=== PATIENT | female | born 1985 ===

== ENCOUNTER 2016-06-12 00:46 | Emergency (ER) | payer MEDICAID, OTHER ==
[~2016-06-12] VITALS: Ht 167.6 cm; Wt 132.7 kg
[2016-06-12] VITALS (8 sets, daily range): BP systolic 113–136; BP diastolic 63–92; PULSE 86–112; RESP 20–34; O2SAT 94–98
[~2016-06-12 00:46] MED LIST: ALBU8.5H2 INHALATION; AMOX500T2 PO; AZIT250T4 PO; HYDR-4003 PO
[2016-06-12] MEDS ORDERED: Albuterol-Ipratropium 3 mL Inhalation Solution NEB ONE (01:00)
[2016-06-12] MEDS ORDERED: Albuterol 2.5 mg/3 mL Inhalation Solution NEB ONE ×3 (01:00→02:50)
--- NOTE | 2016-06-12 01:13 | ED.REPORT ---
HPI-Dyspnea / Wheezing Date of Service Jun 12, 2016 ED Provider: Mitchell Dupree MD Pt is a 30 y.o. female with a hx of asthma who presents to the ED c/o SOB onset today. Pt also states that she is having heavy vaginal bleeding onset yesterday in association with her menses, she reports going through "more pads than normal ". She denies fever, vomiting, diarrhea, and cough. Nursing Notes Stated Complaint: TROUBLE BREATHING Chief Complaint: General Complaint Nursing Notes Reviewed: Yes Allergies: Coded Allergies: cyclobenzaprine (Verified Allergy, Mild, 06/12/16) methocarbamol (Verified Allergy, Mild, 06/12/16) hydromorphone HCl (Verified Allergy, Unknown, 06/12/16) ibuprofen (Verified Allergy, Unknown, 06/12/16) naproxen (Verified Allergy, Unknown, 03/13/16) tramadol (Verified Allergy, Unknown, 03/13/16) Scheduled Albuterol HFA (Proair HFA) 8.5 Gm Hfa.aer.ad 2 PUFFS INHALATION Q4H Amoxicillin (Amoxicillin) 500 Mg Tablet 500 MG PO TID Azithromycin (Zithromax (Z-Tom)) 250 Mg Tablet 250 MG PO DIRECTED Take two tablets by mouth on day 1, then take one tablet daily on days 2 through 5. Scheduled PRN Hydrocodone-Acetaminophen 5-325 mg (Hydrocodone-Acetaminophen 5-325 mg) 1 Each Tablet 1 TABLET PO Q4H PRN PRN For Pain General Time Seen by MD: 01:12 Chief Complaint Shortness of breath Hx Obtained From: Patient Arrived By: Walk-in Sudden in Onset?: Yes Onset Occurred: Just prior to arrival Symptom Duration: Since onset Severity: Current: No pain currently Recent Healthcare: No recent doctor visit, No recent hospitalization Past Medical History Past Medical History morbid obesity, chronic back pain Reports: Asthma Past Surgical History Reports: Cholecystectomy, Tonsillectomy Family History Reviewed, not relevant Smoking History Current Some Day Smoker Social History Alcohol Use: Denies alcohol use Drug Use: Denies drug use Occupation [employer] Ambulatory Status Independent Review of Systems Constitutional: Denies: Fever Respiratory: Reports: Shortness of breath, Denies: Non-productive cough Complete sys rev & neg: except as marked. GI: Denies: Diarrhea, Nausea, Vomiting Female: Reports: Vaginal bleeding - abnl Physical Exam Initial Vital Signs Vital Signs (First) Date Time Temp Pulse Resp B/P Pulse Ox O2 Delivery O2 Flow Rate FiO2 06/12/16 00:50 36.0 86 24 136/92 98 Room Air Initial VS: Reviewed Head / Eyes: Atraumatic, Normocephalic Extremities: Vascular intact, Neuro intact Skin: Warm, Dry, No cyanosis Neurologic: Alert, Oriented, Nonfocal Psychiatric: Mood/affect normal, Behavior normal, Normal thought content General/Constitutional: Awake, Alert, Well appearing, Well developed, Well hydrated, Well nourished, Not toxic appearing Appearance / Presentation: Positive: Obese, morbidly Neck: Atraumatic Respiratory / Chest: Atraumatic, No respiratory distress Wheezing / Retractions: Positive: Wheezing expiratory (High pitched, throughout all galvez) Cardiovascular: Heart rate NL, Regular rhythm, Heart sounds NL, Cap refill not delayed, Peripheral circulation NL No lower extremity edema Abdomen: Atraumatic, Soft, Non-tender, No guarding, No rebound, No distention Interpretation & Diagnostics Lab Results Interpretation Result Diagram: 06/12/16 0140 06/12/16 0140 Test 06/12/16 01:40 White Blood Count 13.1th/mm3 (3.8-10.1) Red Blood Count 5.22mil/mm3 (3.90-5.20) Hemoglobin 15.5g/dL (12.0-15.6) Hematocrit 45.4% (35.0-46.0) Mean Corpuscular Volume 87.0fL (81-100) Mean Corpuscular Hemoglobin 29.7pg (27.0-35.0) Mean Corpuscular Hemoglobin Concent 34.1% (32.0-37.0) Red Cell Distribution Width 13.2% (12.3-15.4) Platelet Count 322bil/L (150-400) Neutrophils (%) (Auto) 39.0% (40-74) Lymphocytes (%) (Auto) 49.2% (14-46) Monocytes (%) (Auto) 6.5% (4-12) Eosinophils (%) (Auto) 4.8% (0-5) Basophils (%) (Auto) 0.3% (0-3) D-Dimer 0.6mg/L (<0.50) Urine Color Yellow (YELLOW) Urine Appearance Clear (CLEAR,HAZY) Urine pH 6.0 (5.0-8.0) Urine Specific [place] 1.010 (1.003-1.035) Urine Protein Negativemg/dL (NEG,TRACE) Urine Glucose (UA) Negativemg/dL (NEGATIVE) Urine Ketones Negativemg/dL (NEGATIVE) Urine Occult Blood Large (NEGATIVE) Urine Nitrite Negative (NEGATIVE) Urine Bilirubin Negative (NEGATIVE) Urine Urobilinogen Normalmg/dL (NORMAL) Urine Leukocyte Esterase Small (NEGATIVE) Urine RBC 3-10/hpf (0-2) Urine WBC >50/hpf (0-5) Urine Epithelial Cells Many/hpf (NONE-MOD) Urine Crystals None seen (NONE SEEN) Urine Bacteria None/hpf (NONE-FEW) Urine Hyaline Casts None/lpf (NONE) Urine Granular Casts None seen (NONE SEEN) Urine Waxy Casts None seen (NONE SEEN) Urine Red Blood Cell Casts None seen (NONE SEEN) Urine White Blood Cell Casts None seen (NONE SEEN) Urine Mucus None seen (None Seen) Urine Trichomonas None seen (NONE SEEN) Urine Yeast None (NONE SEEN) Urine Culture Reflexed Indicated Sodium Level 138mEq/L (134-144) Potassium Level 3.6mEq/L (3.5-5.2) Chloride Level 101mEq/L (97-108) Carbon Dioxide Level 24mmol/L (18-29) Blood Urea Nitrogen 8mg/dL (6-20) Creatinine 0.47mg/dL (0.57-1.00) Estimat Glomerular Filtration Rate 226mL/min (>59) Glucose Level 107mg/dL (60-99) Calcium Level 9.0mg/dL (8.5-10.1) Total Bilirubin 0.7mg/dL (0.0-1.2) Aspartate Amino Transf (AST/SGOT) 20U/L (0-50) Alanine Aminotransferase (ALT/SGPT) 17U/L (0-32) Alkaline Phosphatase 106U/L (25-150) Troponin T 0.010ug/L (0.0-0.011) Pro-B-Type Natriuretic Peptide 17pg/mL (0-130) Total Protein 7.4g/dL (6.4-8.4) Albumin 4.2g/dL (3.4-5.0) Point of Care Testing: Preg test neg - urine Cardiac / Vascular Interp D-Dimer elevated Urinalysis Interpretation Positive RBC's, Positive WBC's X-Ray Chest Interpretation Chest Xray Interpretation: IMPRESSION: No acute cardiopulmonary disease. Interpretation / Wet Read by: Wet read ED physician Re-Eval/Medical Decision Med Decision/Clinical Course 22-year-old female presents with rather severe bronchospasm. She is a known asthmatic and she has been short of breath 4 days. She is found be tachypneic and have diffuse expiratory wheeze. At times her sat was 90%. She is treated with continuous treatment and a DuoNeb and steroids. She sounded better for about 20 minutes after which she started to have diffuse wheeze again. She was now complaining of pleuritic upper chest pain. D-dimer is elevated. Chest x- ray is normal. She does have a leukocytosis. CT angiogram will be pending. We will start her back on a continuous treatment. I will administer IV magnesium. Care endorsed to Dr. Genao Source of Hx: Old records Re-Evaluation/Progress #1: Time of Eval: 02:07 Re-Evaluation/Progress Note: Pt rechecked. Pt states SOB has improved. Re-Evaluation/Progress #2: Time of Eval: 02:44 Re-Evaluation/Progress Note: Discussed plan for CT due to elevated d-dimer. Will administer IV magnesium. Coarse wheezing, painful cough, hypoxic. Counseled Regarding: Diagnosis, Lab results, Need for follow-up, When/why to return to ED Discharge & Departure Shift Change Sign-Out Patient Care Transferred: Yes (Dr. Genao) Discussed Complaint(s): Yes Laboratory Evaluation: Lab evaluation discussed Imaging Studies: Ordered, not yet done Impression: Primary Impression: Status asthmaticus Asthma severity: severe persistent Qualified Code: J45.52 - Severe persistent asthma with status asthmaticus Additional Impression: Pleuritic chest pain Discharge Condition All VS Reviewed: Yes Condition: Stable Referrals: Kapil Phillips MD (PCP) Care Transferred to: Dr. Genao Care Transferred at: 03:00 Theo Attestation Portions of this note were transcribed by Panda Child. I, Dr. Dupree personally performed the history, physical exam and medical decision-making; I reviewed and confirmed the accuracy of the information in the transcribed note. Signed by : Theo Devries, 06/12/16 and 0259. copies to: Kapil Phillips MD, Todd P DO Jun 12, 2016 01:13 PANDA CHILD Jun 12, 2016 01:18
[2016-06-12] MEDS ORDERED: MethylprednisoLONE Sodium Succinate 62.5 mg/mL 2 mL Inj IVPUSH ONE (01:15)
[2016-06-12] MEDS ORDERED: Albuterol 0.5% (5mg/mL) 20 mL Inhalation Solution ONE (01:16)
[2016-06-12 01:51] LABS: BASOPHILS % (AUTO) 0.3 % (0-3); EOSINOPHILS % (AUTO) 4.8 % (0-5); MONOCYTES % (AUTO) 6.5 % (4-12); Mean Corpuscular Hemoglobin 29.7 pg (27.0-35.0); Platelet Count 322 bil/L (150-400)
[2016-06-12 02:05] LABS: APPEARANCE,URINE CLEAR (CLEAR,HAZY); COLOR,URINE YELLOW (YELLOW); OCCULT BLOOD,URINE LARGE (NEGATIVE); UROBILINOGEN,URINE NORMAL (NORMAL)
[2016-06-12 02:30] LABS: TROPONIN T 0.01 ug/L (0.0-0.011)
[2016-06-12] MEDS ORDERED: Magnesium Sulf 2 Gm/50mL Water 2 GM in IV Premix 1 EACH IV ONE (02:50)
[2016-06-12] MEDS ORDERED: cefTRIAXone Inj 2 GM in IV Premix 1 EACH IV ONE (03:20)
[2016-06-12] MEDS ORDERED: cefTRIAXone Inj 2,000 MG in IV Premix 1 EACH IV ONE (03:21)
[2016-06-12] MEDS ORDERED: PRE20 PO (06:40)
--- NOTE | 2016-06-12 08:50 | DRSVH ---
PROCEDURE: CT ANGIO CHEST PULMONARY EMBOLISM ([id number]) INDICATIONS: hypoxia, pleuritic upper chest pain, elevated d-dimer. TECHNIQUE: After the administration of intravenous contrast, 2 mm thick sections acquired from the pulmonary api muna to the posterior costophrenic angles. 3-dimensional maximum intensity projection (MIP) coronal a nd sagittal reformats were then acquired through the thorax. For radiation dose reduction, the follo wing was used: automated exposure control, adjustment of mA and/or kV according to patient size. COMPARISON: [facility], CT, CT ANGIO CHEST PE, 04/22/2016, 6:23. FINDINGS: Image quality: Excellent. Pulmonary arteries: Pulmonary arteries are normal in size, and demonstrate no intraluminal filling d efects to suggest central pulmonary embolism. Lungs and pleura: Lungs are clear. No pleural effusions or pneumothorax. Central and peripheral ai rways are patent. Mediastinum: Heart size is normal, without pericardial effusion. No mediastinal or hilar adenopathy . Thoracic aorta is normal in caliber and enhancement. Esophagus is normal in caliber, without hiat al hernia. Bones and chest wall: No suspicious bony lesions. Ribs and thoracic spine appear intact throughout. Thyroid gland is normal. No axillary or supraclavicular adenopathy. Abdomen: Visualized upper abdominal solid organs appear normal in the early arterial phase of enhanc ement. There is diffuse hepatic fatty infiltration. Gallbladder is surgically absent. IMPRESSION: 1. No evidence for acute central pulmonary embolism. 2. Hepatic steatosis. No significant discrepancy with the cage shift manager radiology preliminary report. Dictated by: Franco Galloway M.D. on 06/12/2016 at 8:45 Approved by: Franco Galloway M.D. on 06/12/2016 at 8:48
--- NOTE | 2016-06-12 09:19 | DRSVH ---
PROCEDURE: X-RAY CHEST ONE VIEW, PORTABLE ([id number]) INDICATIONS: dyspnea TECHNIQUE: One view of the chest was acquired. COMPARISON: [facility], CR, CHEST 1VW (PORTABLE), 09/06/2008, 0:14. FINDINGS: Surgical changes and devices: None. Lungs and pleura: No pleural effusions or pneumothorax. Lungs are clear. Mediastinum: Mediastinal contours appear normal. Heart size is normal. Bones and chest wall: No suspicious bony lesions. Overlying soft tissues appear unremarkable. IMPRESSION: No acute cardiopulmonary disease. Dictated by: Marcus GUSTAFSON Interpreted: Samantha Monk MD on 06/12/2016 at 9:18 Transcribed by: KARINA on 06/12/2016 at 9:19 Approved by: Samantha Monk MD, PhD on 06/12/2016 at 16:44
== END 2016-06-12 06:49 | disposition home or self-care (01) ==
LOC: SED 00:46
DX: J45.52 Severe persistent asthma with status asthmaticus (principal); R07.81 Pleurodynia; N93.9 Abnormal uterine and vaginal bleeding, unspecified; F17.200 Nicotine dependence, unspecified, uncomplicated; Z88.5 Allergy status to narcotic agent; Z88.8 Allergy status to other drugs, medicaments and biological substances
CPT/HCPCS: 36415; 71010; 71275; 80053; 81000; 81025; 83880; 84484; 85025; 85379; 87086; 87804; 94640; 94664; 96365; 96375; 99285; J0696; J2930; J7613; J7620; Q9967

== ENCOUNTER 2016-07-06 20:38 | Emergency (ER) | payer MEDICAID, OTHER ==
[~2016-07-06] VITALS: Ht 167.6 cm; Wt 132.0 kg
[~2016-07-06 20:38] MED LIST changes: +PRE20 PO
[2016-07-06 20:55] VITALS: BP 117/77; PULSE 86; RESP 22; O2SAT 99
--- NOTE | 2016-07-06 22:49 | ED.REPORT ---
HPI-Back Pain Under 40 Date of Service Jul 06, 2016 ED Provider: Rommel Jimenez MD Pt is a 31 y/o female w/ a hx of nephrolithiasis, chronic back pain presenting to the ED c/o left-sided lumbar back pain onset 3 days ago. Pt c/o associated dysuria, urinary frequency, nausea, subjective fever. Pt denies vomiting. She has a history of kidney stones and chronic back pain and believes her pain today is similar to episodes of kidney stones. She also notes some mild SOB and is requesting a nebulizer. Nursing Notes Stated Complaint: BACK PAIN Chief Complaint: Back Pain or Injury Nursing Notes Reviewed: Yes Allergies: Coded Allergies: cyclobenzaprine (Verified Allergy, Mild, 06/12/16) methocarbamol (Verified Allergy, Mild, 06/12/16) hydromorphone HCl (Verified Allergy, Unknown, 06/12/16) ibuprofen (Verified Allergy, Unknown, 06/12/16) naproxen (Verified Allergy, Unknown, 03/13/16) tramadol (Verified Allergy, Unknown, 03/13/16) Scheduled Albuterol HFA (Proair HFA) 8.5 Gm Hfa.aer.ad 2 PUFFS INHALATION Q4H Amoxicillin (Amoxicillin) 500 Mg Tablet 500 MG PO TID Azithromycin (Zithromax (Z-Tom)) 250 Mg Tablet 250 MG PO DIRECTED Take two tablets by mouth on day 1, then take one tablet daily on days 2 through 5. Ciprofloxacin (Ciprofloxacin) 500 Mg Tablet 500 MG PO BID Prednisone (PredniSONE) 20 Mg Tablet 20 MG PO TID Scheduled PRN Hydrocodone-Acetaminophen 5-325 mg (Hydrocodone-Acetaminophen 5-325 mg) 1 Each Tablet 1 TABLET PO Q4H PRN PRN For Pain General Time Seen by MD: 22:12 Chief Complaint Lumbar pain Hx Obtained From: Patient Arrived By: Walk-in Sudden in Onset?: No Onset Occurred: 3 days ago Symptom Duration: Since onset Location: : Perispinal lumbar Quality: Painful Severity: Current: Moderate Severity: Maximum: Moderate Recent Healthcare: Previous diagnosis Similar Sx Previous: Yes Past Medical History Past Medical History morbid obesity, chronic back pain Asthma Hx kidney stones Past Surgical History Reports: Cholecystectomy, Tonsillectomy Family History Reviewed, not relevant Smoking History Current Some Day Smoker Social History Alcohol Use: Denies alcohol use Drug Use: Denies drug use Occupation [employer] Ambulatory Status Independent Review of Systems Constitutional: Reports: Fever Respiratory: Reports: Shortness of breath GI: Reports: Nausea, Denies: Vomiting Female: Reports: Dysuria, Flank pain, Urinary frequency Musculoskeletal: Reports: Back pain Neurologic: Denies: Bladder dysfunction, Bowel dysfunction Complete sys rev & neg: except as marked. Physical Exam Initial Vital Signs Vital Signs (First) Date Time Temp Pulse Resp B/P Pulse Ox O2 Delivery O2 Flow Rate FiO2 07/06/16 20:55 36.1 86 22 117/77 99 Room Air Initial VS: Reviewed, Vital signs normal Head / Eyes: Atraumatic, Normocephalic, PERRL ENT: Mucous membranes moist, Conjunctiva normal, No scleral icterus Neck: Supple, Full range of motion Cardiovascular: Regular rate & rhythm, Heart sounds normal, Intact distal pulses Extremities: Vascular intact, Neuro intact, No swelling, No tenderness Skin: Warm, Dry, No cyanosis Psychiatric: Mood/affect normal, Behavior normal, Normal thought content General/Constitutional: Awake, Alert, No acute distress, Cooperative, Not toxic appearing Back: Full range of motion, Painless range of motion, No CVA tenderness Neurologic: Oriented X3, Speech NL, No motor deficits, No sensory deficits Respiratory / Chest: Atraumatic, No respiratory distress, No stridor, No chest tenderness, No chest wall deformity, No crepitus Few scattered wheezes Abdomen: Atraumatic, Soft, No guarding, No rebound, No distention, No palpable mass Tenderness/Guarding/Rebound: Positive: Tender diffuse (mild) Interpretation & Diagnostics Interpretation & Diagnostics: CT KUB: Conclusion: Suspected 2.7 cm cyst in the right ovary. Trnsmitted to the ED by Martell Morrissey MD at 0050 Lab Results Interpretation Result Diagram: 07/06/16 2311 07/06/16 2311 Test 07/06/16 23:01 07/06/16 23:11 Urine Color Yellow (YELLOW) Urine Appearance Hazy (CLEAR,HAZY) Urine pH 6.0 (5.0-8.0) Urine Specific [place] 1.025 (1.003-1.035) Urine Protein Negativemg/dL (NEG,TRACE) Urine Glucose (UA) Negativemg/dL (NEGATIVE) Urine Ketones Negativemg/dL (NEGATIVE) Urine Occult Blood Negative (NEGATIVE) Urine Nitrite Negative (NEGATIVE) Urine Bilirubin Negative (NEGATIVE) Urine Urobilinogen Normalmg/dL (NORMAL) Urine Leukocyte Esterase Small (NEGATIVE) Urine RBC 3-10/hpf (0-2) Urine WBC 11-50/hpf (0-5) Urine Epithelial Cells Moderate/hpf (NONE-MOD) Urine Crystals None seen (NONE SEEN) Urine Bacteria Few/hpf (NONE-FEW) Urine Hyaline Casts None/lpf (NONE) Urine Granular Casts None seen (NONE SEEN) Urine Waxy Casts None seen (NONE SEEN) Urine Red Blood Cell Casts None seen (NONE SEEN) Urine White Blood Cell Casts None seen (NONE SEEN) Urine Mucus Present (None Seen) Urine Trichomonas None seen (NONE SEEN) Urine Yeast None (NONE SEEN) Urinalysis Comment None Urine Culture Reflexed Indicated White Blood Count 17.8th/mm3 (3.8-10.1) Red Blood Count 5.25mil/mm3 (3.90-5.20) Hemoglobin 15.4g/dL (12.0-15.6) Hematocrit 46.0% (35.0-46.0) Mean Corpuscular Volume 87.6fL (81-100) Mean Corpuscular Hemoglobin 29.3pg (27.0-35.0) Mean Corpuscular Hemoglobin Concent 33.5% (32.0-37.0) Red Cell Distribution Width 13.2% (12.3-15.4) Platelet Count 315bil/L (150-400) Neutrophils (%) (Auto) 65.6% (40-74) Lymphocytes (%) (Auto) 23.2% (14-46) Monocytes (%) (Auto) 8.4% (4-12) Eosinophils (%) (Auto) 2.0% (0-5) Basophils (%) (Auto) 0.3% (0-3) Band Neutrophils % 1% (1-5) Sodium Level 137mEq/L (134-144) Potassium Level 4.3mEq/L (3.5-5.2) Chloride Level 100mEq/L (97-108) Carbon Dioxide Level 25mmol/L (18-29) Blood Urea Nitrogen 13mg/dL (6-20) Creatinine 0.72mg/dL (0.57-1.00) Estimat Glomerular Filtration Rate 137mL/min (>59) Glucose Level 80mg/dL (60-99) Calcium Level 8.8mg/dL (8.5-10.1) Total Bilirubin 0.9mg/dL (0.0-1.2) Aspartate Amino Transf (AST/SGOT) 16U/L (0-50) Alanine Aminotransferase (ALT/SGPT) 15U/L (0-32) Alkaline Phosphatase 93U/L (25-150) Total Protein 6.5g/dL (6.4-8.4) Albumin 3.5g/dL (3.4-5.0) Lipase 15U/L (13-60) Hold Padron Top Tube Received (Received) X-Ray Chest Interpretation View: Portable, 1 view Reviewed Previous Films: No change NL X-Ray Chest Findings: No infiltrate, No acute disease Re-Eval/Medical Decision Med Decision/Clinical Course 31-year-old female history of kidney stones presenting complaining of dysuria and right lower back pain. Urine positive for infection. Vital signs stable. CT abdomen and pelvis with no evidence of kidney stones hydronephrosis or obstruction. Patient was given one dose of Rocephin and will be treated with ciprofloxacin for pyelonephritis. Recommend follow-up with primary doctor 2 days for recheck. Return precautions given. Re-Evaluation/Progress : Time of Eval: 01:05 Patient Status: Condition improved, Moderate relief, Pain improved Re-Evaluation/Progress Note: Pt rechecked. Discussed labs and imaging. Informed pt of plan for treatment. Pt understands and agrees with plan for treatment. F/U instructions and RTER warnings given. All questions addressed. Counseled Regarding: Diagnosis, Lab results, Need for follow-up, When/why to return to ED Discharge & Departure Impression: Primary Impression: Pyelonephritis Additional Impression: Right ovarian cyst Disposition: Home All VS Reviewed: Yes Condition: Stable Patient Instructions: Acute Pyelonephritis (ED) Additional Instructions: Your interview, labs, and physical exam are consistent with a urinary tract infection. The CT scan showed a right ovarian cyst but was otherwise normal. Take the full course of Cipro as prescribed. Return to the emergency department for increasing pain, vomiting, high fever, or other concerning symptoms. Follow-up with your doctor in 2 days for re-evaluation. Referrals: Kapil Phillips MD (PCP) Scribe Attestation Portions of this note were transcribed by Hemal Roach. I, Dr. Jimenez, personally performed the history, physical exam and medical decision-making; I reviewed and confirmed the accuracy of the information in the transcribed note. Signed by Theo Millan, 07/06/16 - [id number] copies to: Kapil Phillips MD, Ben M MD Jul 06, 2016 22:49 HEMAL ROACH Jul 06, 2016 22:50
[2016-07-06 23:27] LABS: BASOPHILS % (AUTO) 0.3 % (0-3); MONOCYTES % (AUTO) 8.4 % (4-12); Mean Corpuscular Hemoglobin 29.3 pg (27.0-35.0); Mean Corpuscular Volume 87.6 fL (81-100); NEUTROPHILS % (AUTO) 65.6 % (40-74); Platelet Count 315 bil/L (150-400)
[2016-07-06] MEDS ORDERED: 0.9% Sodium Chloride 1,000 ML IV ONE (23:44)
[2016-07-06] MEDS ORDERED: Ondansetron 2 mg/mL 2 mL Inj IVPUSH PRN (23:45)
[2016-07-06] MEDS ORDERED: cefTRIAXone Inj 2,000 MG in Dextrose 5% Minibag Plus 50 ML IV ONE (23:45)
[2016-07-06 23:47] LABS: APPEARANCE,URINE HAZY (CLEAR,HAZY); COLOR,URINE YELLOW (YELLOW); OCCULT BLOOD,URINE NEGATIVE (NEGATIVE); UROBILINOGEN,URINE NORMAL (NORMAL)
[2016-07-07] MEDS ORDERED: CIPR-198 PO (01:03)
[2016-07-07] MEDS ORDERED: predniSONE 20 mg Tablet PO ONE (01:10)
[2016-07-07] MEDS ORDERED: Albuterol 2.5 mg/3 mL Inhalation Solution NEB ONE (01:10)
[2016-07-07 01:49] VITALS: PULSE 105; RESP 20; O2SAT 94
[2016-07-07 02:18] VITALS: BP 124/77; PULSE 101; RESP 20; O2SAT 96
--- NOTE | 2016-07-07 08:04 | DRSVH ---
PROCEDURE: CT KUB ([id number]) INDICATIONS: abd pain h/o kidney stones TECHNIQUE: Noncontrast 5 mm thick sections acquired from the diaphragms to the symphysis. 5 mm thick coronal an d sagittal reformats were then performed. For radiation dose reduction, the following was used: aut omated exposure control, adjustment of mA and/or kV according to patient size. COMPARISON: CT abdomen and pelvis 03/09/2015 FINDINGS: Preliminary report by retail shift supervisor radiology Image quality: Excellent. Lung bases: Lung bases are clear. Heart size is normal. Urinary system: Both kidneys are normal in size. No kidney stones. No hydronephrosis or perinephri c fat stranding. Both ureters appear non-dilated throughout their expected courses. Bladder wall th ickness is normal; no calcified bladder stones. Other solid organs: Liver and spleen are normal in size. Gallbladder is surgically absent. Pancrea s is normal in contours. No adrenal nodules. Peritoneum and bowel: Unenhanced bowel loops demonstrate normal wall thickness and caliber. No evide nce of appendicitis No free fluid or air. Nodes and vessels: No retroperitoneal or mesenteric adenopathy by size criteria. Aorta and inferior vena cava are normal in caliber. Abdominal wall: No ventral hernias. Nephrolithiasis or hydronephrosis. Pelvic fluid. No inguinal hernias or adenopathy. Uterus and adne xa appear unremarkable noting probable follicular cyst in the right ovary. Bones: No suspicious bony lesions. No vertebral body compression fractures. IMPRESSION: 1. No acute findings in the abdomen or pelvis. 2. No evidence of hydronephrosis or nephrolithiasis 3. Status post cholecystectomy. 4. Right ovary contains a 2.5 cm cyst. Findings are concordant with the preliminary report Dictated by: Patrice Alcantara M.D. on 07/07/2016 at 7:56 Approved by: Patrice Alcantara M.D. on 07/07/2016 at 8:02
--- NOTE | 2016-07-07 09:22 | DRSVH ---
PROCEDURE: X-RAY CHEST ONE VIEW, PORTABLE ([id number]) INDICATIONS: dyspnea TECHNIQUE: One view of the chest was acquired. COMPARISON: [facility], CR, XR CHEST 1VW (PORTABLE), 06/12/2016, 1:16. FINDINGS: Surgical changes and devices: None. Lungs and pleura: No pleural effusions or pneumothorax. Lungs are clear. Mediastinum: Mediastinal contours appear normal. Heart size is normal. Bones and chest wall: No suspicious bony lesions. Overlying soft tissues appear unremarkable. IMPRESSION: Expiratory chest demonstrating no definite acute cardiopulmonary disease. Dictated by: Marcus Leonard [facility] Interpreted: Myah Do MD on 07/07/2016 at 9:21 Transcribed by: GENO on 07/07/2016 at 9:21 Approved by: Myah Do M.D. on 07/07/2016 at 16:39
== END 2016-07-07 02:20 | disposition home or self-care (01) ==
LOC: SED 20:38
DX: N10 Acute pyelonephritis (principal); N83.201 Unspecified ovarian cyst, right side; M54.9 Dorsalgia, unspecified; G89.29 Other chronic pain; E66.01 Morbid (severe) obesity due to excess calories; J45.909 Unspecified asthma, uncomplicated; F17.200 Nicotine dependence, unspecified, uncomplicated; Z87.442 Personal history of urinary calculi; Z68.42 Body mass index [BMI] 45.0-49.9, adult; Z88.8 Allergy status to other drugs, medicaments and biological substances; Z88.5 Allergy status to narcotic agent; Z88.6 Allergy status to analgesic agent
CPT/HCPCS: 36415; 71010; 74176; 80053; 81000; 81025; 83690; 85025; 87086; 87088; 96361; 96365; 96375; 99285; J0696; J2270; J2405; J7030; J7613

== ENCOUNTER 2016-07-12 19:43 | Emergency (ER) | payer MEDICAID, OTHER ==
[~2016-07-12] VITALS: Ht 167.6 cm; Wt 132.7 kg
[~2016-07-12 19:43] MED LIST changes: +CIPR-198 PO
[2016-07-12 19:47] VITALS: BP 141/97; PULSE 90; RESP 18; O2SAT 98
[2016-07-12 20:44] LABS: APPEARANCE,URINE CLEAR (CLEAR,HAZY); COLOR,URINE YELLOW (YELLOW)
[2016-07-12 20:45] LABS: OCCULT BLOOD,URINE LARGE (NEGATIVE); UROBILINOGEN,URINE NORMAL (NORMAL)
--- NOTE | 2016-07-12 21:34 | ED.REPORT ---
HPI-Abd Pain F Under 42 Date of Service Jul 12, 2016 ED Provider: Rommel Jimenez MD A 31 year old female with a history of nephrolithiasis and chronic back pain presents to the ED complaining of lower back pain that began earlier this evening. Associated symptoms include nausea and one episode of diarrhea. Patient was diagnosed with pyelonephritis in the ED on 07/06 after experiencing similar symptoms. Her workup also revealed ovarian cysts. She was discharged in good condition with Cipro. Patient states that this pain is worse than her previous episodes of back pain. She denies any fever, pelvic pain, abdominal pain or vomiting. Patient's is currently on her menstrual cycle. Nursing Notes Stated Complaint: LOW BACK PAIN, BLEEDING Chief Complaint: Female Abdominal Pain Nursing Notes Reviewed: Yes Allergies: Coded Allergies: cyclobenzaprine (Verified Allergy, Mild, 07/12/16) methocarbamol (Verified Allergy, Mild, 07/12/16) hydromorphone HCl (Verified Allergy, Unknown, 07/12/16) ibuprofen (Verified Allergy, Unknown, 07/12/16) naproxen (Verified Allergy, Unknown, 07/12/16) tramadol (Verified Allergy, Unknown, 07/12/16) Scheduled Albuterol HFA (Proair HFA) 8.5 Gm Hfa.aer.ad 2 PUFFS INHALATION Q4H Amoxicillin (Amoxicillin) 500 Mg Tablet 500 MG PO TID Azithromycin (Zithromax (Z-Tom)) 250 Mg Tablet 250 MG PO DIRECTED Take two tablets by mouth on day 1, then take one tablet daily on days 2 through 5. Ciprofloxacin (Ciprofloxacin) 500 Mg Tablet 500 MG PO BID Prednisone (PredniSONE) 20 Mg Tablet 20 MG PO TID Scheduled PRN Hydrocodone-Acetaminophen 5-325 mg (Hydrocodone-Acetaminophen 5-325 mg) 1 Each Tablet 1 TABLET PO Q4H PRN PRN For Pain Hydrocodone-Acetaminophen 5-325 mg (Hydrocodone-Acetaminophen 5-325 mg) 1 Each Tablet 1 TABLET PO Q4H PRN PRN For Pain General Time Seen by MD: 21:32 Chief Complaint Other (Back pain) Hx Obtained From: Patient Arrived By: Walk-in Sudden in Onset?: No Onset Occurred: 9 - 12 hours ago Symptom Duration: Since onset Progression since Onset: Unchanged Associated with: Reports: Diarrhea, Nausea, Denies: Constipation, Fever, Vomiting Pertinent Negative: Pt denies other symptoms Status: Last NL menst cycle (Current) Recent Healthcare: Recent doctor visit, Recent hospitalization Past Medical History Past Medical History Morbid obesity Chronic back pain Asthma Hx kidney stones Past Surgical History Reports: Cholecystectomy, Tonsillectomy Family History Reviewed, not relevant Smoking History Current Some Day Smoker Social History Alcohol Use: Denies alcohol use Drug Use: Denies drug use Other Social History: Good social support, Local resident Occupation [employer] Ambulatory Status Independent Review of Systems Constitutional: Denies: Chills, Fever Respiratory: Denies: Shortness of breath Cardiovascular: Denies: Chest pain GI: Reports: Diarrhea (1 episode), Denies: Abdominal pain, Nausea, Vomiting Female: Reports: Flank pain, Denies: Dysuria, Pelvic pain, Musculoskeletal: Reports: Back pain (lower back pain) Complete sys rev & neg: except as marked. Neurologic: Denies: Change LOC Physical Exam Initial Vital Signs Vital Signs (First) Date Time Temp Pulse Resp B/P Pulse Ox O2 Delivery O2 Flow Rate FiO2 07/12/16 19:47 36.1 90 18 141/97 98 Room Air Initial VS: Reviewed Head / Eyes: Atraumatic, Normocephalic, PERRL Extremities: Vascular intact, Neuro intact, No swelling, No tenderness Skin: Warm, Dry, No cyanosis Neurologic: Alert, Oriented, Nonfocal Psychiatric: Mood/affect normal, Behavior normal, Normal thought content General/Constitutional: Awake, Alert Respiratory / Chest: Atraumatic, Breath sounds NL, Breath sounds = bilat Cardiovascular: Heart rate NL, Regular rhythm, Heart sounds NL Abdomen: Atraumatic, Soft, Non-tender Back: Atraumatic, No midline vertebral tend, No CVA tenderness BACK: Diffuse tenderness Female Genitourinary: Maintenance Pipefitter present, Atraumatic Pelvic Exam: Negative: Adnexal tenderness L, Adnexal tenderness R, Cervical motion tend... PELVIC: Cervix closed Small amount of blood in the vault Interpretation & Diagnostics 07/08: CT ABD/PELVIS w/o contrast IMPRESSION: 1. No acute findings in the abdomen or pelvis. 2. No evidence of hydronephrosis or nephrolithiasis 3. Status post cholecystectomy. 4. Right ovary contains a 2.5 cm cyst. Findings are concordant with the preliminary report Dictated by: Patrice Alcantara M.D. on 07/07/2016 at 7:56 Lab Results Interpretation Result Diagram: 07/12/16 2157 07/12/16 2157 Test 07/12/16 20:05 07/12/16 21:57 Urine Color Yellow (YELLOW) Urine Appearance Clear (CLEAR,HAZY) Urine pH 5.0 (5.0-8.0) Urine Specific [place] >1.030 (1.003-1.035) Urine Protein Tracemg/dL (NEG,TRACE) Urine Glucose (UA) Negativemg/dL (NEGATIVE) Urine Ketones Tracemg/dL (NEGATIVE) Urine Occult Blood Large (NEGATIVE) Urine Nitrite Negative (NEGATIVE) Urine Bilirubin Negative (NEGATIVE) Urine Urobilinogen Normalmg/dL (NORMAL) Urine Leukocyte Esterase Negative (NEGATIVE) Urine RBC >50/hpf (0-2) Urine WBC 0-5/hpf (0-5) Urine Epithelial Cells Few/hpf (NONE-MOD) Urine Crystals None seen (NONE SEEN) Urine Bacteria Few/hpf (NONE-FEW) Urine Hyaline Casts None/lpf (NONE) Urine Granular Casts None seen (NONE SEEN) Urine Waxy Casts None seen (NONE SEEN) Urine Red Blood Cell Casts None seen (NONE SEEN) Urine White Blood Cell Casts None seen (NONE SEEN) Urine Mucus None seen (None Seen) Urine Trichomonas None seen (NONE SEEN) Urine Yeast None (NONE SEEN) Urinalysis Comment None Urine Culture Reflexed Not indicated White Blood Count 11.4th/mm3 (3.8-10.1) Red Blood Count 5.09mil/mm3 (3.90-5.20) Hemoglobin 15.1g/dL (12.0-15.6) Hematocrit 44.9% (35.0-46.0) Mean Corpuscular Volume 88.2fL (81-100) Mean Corpuscular Hemoglobin 29.7pg (27.0-35.0) Mean Corpuscular Hemoglobin Concent 33.6% (32.0-37.0) Red Cell Distribution Width 13.1% (12.3-15.4) Platelet Count 325bil/L (150-400) Neutrophils (%) (Auto) 53.1% (40-74) Lymphocytes (%) (Auto) 33.7% (14-46) Monocytes (%) (Auto) 10.0% (4-12) Eosinophils (%) (Auto) 2.6% (0-5) Basophils (%) (Auto) 0.4% (0-3) Sodium Level 140mEq/L (134-144) Potassium Level 4.1mEq/L (3.5-5.2) Chloride Level 103mEq/L (97-108) Carbon Dioxide Level 21mmol/L (18-29) Blood Urea Nitrogen 7mg/dL (6-20) Creatinine 0.53mg/dL (0.57-1.00) Estimat Glomerular Filtration Rate 195mL/min (>59) Glucose Level 99mg/dL (60-99) Calcium Level 8.9mg/dL (8.5-10.1) Total Bilirubin 0.7mg/dL (0.0-1.2) Aspartate Amino Transf (AST/SGOT) 23U/L (0-50) Alanine Aminotransferase (ALT/SGPT) 25U/L (0-32) Alkaline Phosphatase 99U/L (25-150) Total Protein 6.7g/dL (6.4-8.4) Albumin 4.0g/dL (3.4-5.0) Lipase 22U/L (13-60) Point of Care Testing: Preg test neg - urine Re-Eval/Medical Decision Med Decision/Clinical Course Med Decision/Clinical Course: 31-year-old female history of kidney stones, right ovarian cyst, chronic low back pain, morbid obesity presenting complaining of bilateral low back pain one week. She was diagnosed with UTI pyelonephritis one week ago and is taking her antibiotics. She reports her symptoms have improved significantly though still with mild low back pain. She had CT abdomen and pelvis with no evidence of kidney stone at that time. Vital signs stable. She has no abdominal tenderness. She has no CVA tenderness. She has mild bilateral lower back pain and no midline pain. Her exam is quite reassuring. Her pain improved with one Beaver. Urine is negative for infection. White blood cell count has normalized from 20,000 to now 11,000. Pelvic with no active bleeding with small blood in the vault she is on her menstrual cycle. She has no cervical motion tenderness or adnexal tenderness to suggest ovarian torsion or other pelvic etiology. Likely musculoskeletal. Can not rule out residual pain from her resolving pyelonephritis. Recommend she continue her antibiotics to complete the course. Have given her several Beaver when necessary pain. She reports allergy to ibuprofen and other NSAIDs. Return precautions given. Re-Evaluation/Progress : Time of Eval: 22:57 Patient Status: Condition improved Re-Evaluation/Progress Note: Patient is rechecked. She is informed of her lab results and diagnosis. All of the patient's questions are addressed. She understands and agrees with the treatment plan. Counseled Regarding: Diagnosis, Lab results, Need for follow-up, When/why to return to ED Discharge & Departure Primary Impression: Back pain Back pain location: back pain in unspecified location Chronicity: unspecified Back pain laterality: unspecified Qualified Code: M54.9 - Dorsalgia, unspecified Disposition: Home Discharge Condition All VS Reviewed: Yes Condition: Stable Patient Instructions: Acute Low Back Pain (ED) Additional Instructions: Thank you for trusting us with your care this evening. Your emergency department evaluation today included examination and lab results. Your results are reassuring at this time and I believe your symptoms are likely musculoskeletal or due to your UTI. Schedule a follow up appointment with your primary care physician in the next 2- 3 days for a recheck. Please return to the emergency department for any new or worsening conditions. Referrals: Kapil Phillips MD (PCP) Scribe Attestation Portions of this note were transcribed by Divine Arreola. I, Dr. Jimenez personally performed the history, physical exam and medical decision-making; I reviewed and confirmed the accuracy of the information in the transcribed note. Signed by: Theo Euceda, 07/12/16 2031. copies to: Kapil Phillips MD, Ben M MD Jul 12, 2016 21:33 DIVINE ARREOLA Jul 12, 2016 21:55
[2016-07-12] MEDS ORDERED: Ketorolac 30 mg/mL 2 mL Inj IM ONE (21:55)
[2016-07-12 22:19] LABS: BASOPHILS % (AUTO) 0.4 % (0-3); EOSINOPHILS % (AUTO) 2.6 % (0-5); Mean Corpuscular Hemoglobin 29.7 pg (27.0-35.0); Mean Corpuscular Volume 88.2 fL (81-100); NEUTROPHILS % (AUTO) 53.1 % (40-74); Platelet Count 325 bil/L (150-400)
[2016-07-12] MEDS ORDERED: HYDR-4003 PO (23:04)
[2016-07-12] MEDS ORDERED: HYDROcodone-APAP 10-325 mg PO ONE (23:15)
[2016-07-12 23:22] VITALS: BP 136/88; PULSE 84; RESP 18; O2SAT 98
== END 2016-07-12 23:23 | disposition home or self-care (01) ==
LOC: SED 19:43
DX: M54.5 Low back pain (principal); G89.29 Other chronic pain; R11.0 Nausea; R19.7 Diarrhea, unspecified; E66.01 Morbid (severe) obesity due to excess calories; J45.909 Unspecified asthma, uncomplicated; F17.200 Nicotine dependence, unspecified, uncomplicated; Z87.442 Personal history of urinary calculi; Z87.42 Personal history of other diseases of the female genital tract; Z68.42 Body mass index [BMI] 45.0-49.9, adult; Z90.49 Acquired absence of other specified parts of digestive tract; Z88.8 Allergy status to other drugs, medicaments and biological substances; Z88.5 Allergy status to narcotic agent; Z88.6 Allergy status to analgesic agent
CPT/HCPCS: 36415; 80053; 81000; 81025; 83690; 85025; 96372; 99284; J1885

== ENCOUNTER 2017-01-14 21:59 | Observation (INO) | payer OTHER ==
[~2017-01-14] VITALS: Ht 167.6 cm; Wt 118.7 kg
[2017-01-14 22:09] VITALS: BP 126/81; PULSE 110; RESP 22; O2SAT 96
--- NOTE | 2017-01-14 22:10 | ED.REPORT ---
HPI-Dyspnea / Wheezing Date of Service Jan 14, 2017 ED Provider: Dr. Galvez The pt is a 31 y/o female with a hx of asthma, nephrolithiasis and chronic back pain who presents to the ED complaining of worsening shortness of breath, onset today. She used her inhaler which provided no relief. Associated sx include cough with clear sputum, dysphagia and chest pain. There are no other complaints at this time. Nursing Notes Stated Complaint: TROUBLE BREATHING Chief Complaint: Respiratory Complaints Nursing Notes Reviewed: Yes Allergies: Coded Allergies: cyclobenzaprine (Verified Allergy, Mild, 01/14/17) methocarbamol (Verified Allergy, Mild, 01/14/17) hydromorphone HCl (Verified Allergy, Unknown, 01/14/17) ibuprofen (Verified Allergy, Unknown, 01/14/17) naproxen (Verified Allergy, Unknown, 01/14/17) tramadol (Verified Allergy, Unknown, 01/14/17) Scheduled Fluticasone Propionate (Flovent HFA 110 mcg) 12 Gm Aer.w.adap 1 PUFF IH BID Prednisone (PredniSONE) 10 Mg Tablet 10 MG PO DAILY Scheduled PRN Albuterol HFA (Proair HFA) 8.5 Gm Hfa.aer.ad 2 PUFFS INHALATION Q4H PRN PRN For Shortness of Breath General Time Seen by MD: 22:10 Chief Complaint Shortness of breath Hx Obtained From: Patient Arrived By: Walk-in Sudden in Onset?: Yes Onset Occurred: 5 - 8 hours ago Symptom Duration: Since onset Location: : Substernal Quality: Painful Radiation: : Does not radiate Severity: Current: Moderate Severity: Maximum: Moderate Recent Healthcare: No recent doctor visit Similar Sx Previous: Yes Past Medical History Past Medical History Morbid obesity Chronic back pain Asthma Hx kidney stones Past Surgical History Reports: Cholecystectomy, Tonsillectomy Family History Reviewed, not relevant Smoking History Current Some Day Smoker Social History Alcohol Use: Denies alcohol use Drug Use: Denies drug use Other Social History: Good social support, Local resident Occupation [employer] Ambulatory Status Independent Review of Systems Reports: dysphagia Respiratory: Reports: Prod cough, clear, Shortness of breath Cardiovascular: Reports: Chest pain Complete sys rev & neg: except as marked. Physical Exam Initial Vital Signs Vital Signs (First) Date Time Temp Pulse Resp B/P Pulse Ox O2 Delivery O2 Flow Rate FiO2 01/14/17 22:09 37.1 110 22 126/81 96 Room Air Initial VS: Reviewed Head / Eyes: Atraumatic, Normocephalic Abdomen / GI: Soft, Non-tender, No guarding, No rebound, No distention Extremities: Vascular intact, Neuro intact, No swelling, No tenderness Skin: Warm, Dry, No cyanosis Neurologic: Alert, Oriented, Nonfocal General/Constitutional: Awake, Alert, Cooperative Distress / Hydration: Positive: Distress mild Neck: Atraumatic, Supple, Full range of motion, No swelling, Non-tender Respiratory / Chest: Atraumatic, No rales, No rhonchi Diminished Breath Sounds: Positive: Decreased bilateral Wheezing / Retractions: Positive: Wheeze insp/exp diffuse Cardiovascular: Heart rate NL, Regular rhythm, Heart sounds NL, No gallop, No murmurs, No rubs Interpretation & Diagnostics Lab Results Interpretation Result Diagram: 01/15/17 0520 01/15/17 0520 Test 01/14/17 22:55 Magnesium Level 1.9mg/dL (1.6-2.6) Troponin T 0.010ug/L (0.0-0.011) Hold Padron Top Tube Received (Received) X-Ray Chest Interpretation Chest Xray Interpretation: No acute cardiopulmonary abnormality. View: Portable, AP & lat Interpretation / Wet Read by: Wet read ED physician Re-Eval/Medical Decision Med Decision/Clinical Course 31-year-old female with history of asthma and tobacco dependence presents with shortness of breath, wheezing, and chest tightness. She was treated with Solu- Medrol and several treatments of DuoNeb's and albuterol here in the ER. Her chest became less tight, but her wheezing became significantly more pronounced. She was mildly hypoxic in the mid to upper 80s while resting and remained significantly tachycardic here 110. She did not feel well and given her physical exam she will be admitted for observation and oxygen therapy as well as for further treatment and evaluation of her current condition. I see no evidence of pneumonia on her chest x-ray and her pro-calcitonin is negative. I did not treat her with antibiotics in the ER. Source of Hx: Old records Re-Evaluation/Progress : Time of Eval: 00:28 Re-Evaluation/Progress Note: Rechecked pt. She does not feel significant relief. Her oxygen is 88 at room air and pulse is 110. Discussed lab results, imaging results,diagnosis and plan to admit. Pt understands and agrees with the plan for admission. All questions addressed. Consultation : Referral / Consult Name: Tin Cintron MD Consulted With: Hospitalist Call Returned at: 00:54 Student Services Director: Will see patient, Agrees with eval, Agrees with plan, Accepts admit Counseled Regarding: Diagnosis, Lab results, Need for admission Discharge & Departure Impression: Primary Impression: Asthma Asthma severity: unspecified severity Asthma complication type: with acute exacerbation Qualified Code: J45.901 - Unspecified asthma with (acute) exacerbation Additional Impression: Hypoxia Disposition: ADMITTED TO HOSPITAL Referrals: Kapil Phillips MD (PCP) Scribe Attestation Portions of this note were transcribed by Ellyn Pires. I,, personally performed the history,physical exam and medical decision-making;I reviewed and confirmed the accuracy of the information in the transcribed note. Signed by Theo Goodman. 01/14/17 copies to: Kapil Phillips MD, Gary R DO Jan 14, 2017 22:10 Ellyn Pires Jan 14, 2017 22:57 Creatinine 0.49mg/dL (0.57-1.00) Estimat Glomerular Filtration Rate 214mL/min (>59) Glucose Level 120mg/dL (60-99) Calcium Level 9.2mg/dL (8.5-10.1) Magnesium Level 1.9mg/dL (1.6-2.6) Total Bilirubin 0.7mg/dL (0.0-1.2) Aspartate Amino Transf (AST/SGOT) 17U/L (0-50) Alanine Aminotransferase (ALT/SGPT) 15U/L (0-32) Alkaline Phosphatase 104U/L (25-150) Troponin T 0.010ug/L (0.0-0.011) Total Protein 7.4g/dL (6.4-8.4) Albumin 3.9g/dL (3.4-5.0) Procalcitonin 0.04ng/mL (0.00-0.08) Hold Padron Top Tube Received (Received) X-Ray Chest Interpretation Chest Xray Interpretation: No acute cardiopulmonary abnormality. View: Portable, AP & lat Interpretation / Wet Read by: Wet read ED physician Re-Eval/Medical Decision Source of Hx: Old records Re-Evaluation/Progress : Time of Eval: 00:28 Re-Evaluation/Progress Note: Rechecked pt. She does not feel significant relief. Her oxygen is 88 at room air and pulse is 93. Discussed lab results, imaging results,diagnosis and plan to admit. Pt understands and agrees with the plan for admission. All questions addressed. Consultation : Referral / Consult Name: Tin Cintron MD Consulted With: Hospitalist Call Returned at: 00:54 Student Services Director: Will see patient, Agrees with eval, Agrees with plan, Accepts admit Counseled Regarding: Diagnosis, Lab results, Need for admission Discharge & Departure Impression: Primary Impression: Asthma Asthma severity: unspecified severity Asthma complication type: with acute exacerbation Qualified Code: J45.901 - Unspecified asthma with (acute) exacerbation Additional Impression: Hypoxia Disposition: ADMITTED TO HOSPITAL Referrals: Kapil Phillips MD (PCP) Scribe Attestation Portions of this note were transcribed by Ellyn Pires. I,, personally performed the history,physical exam and medical decision-making;I reviewed and confirmed the accuracy of the information in the transcribed note. Signed by Theo Goodman. 01/14/17 copies to: Kapil Phillips MD, Gary R DO Jan 14, 2017 22:10 Ellyn Pires Jan 14, 2017 22:57
[2017-01-14] MEDS ORDERED: MethylprednisoLONE Sodium Succinate 62.5 mg/mL 2 mL Inj IVPUSH ONE (22:20)
[2017-01-14] MEDS ORDERED: Albuterol 2.5 mg/3 mL Inhalation Solution NEB ONE (22:20)
[2017-01-14] MEDS ORDERED: Albuterol-Ipratropium 3 mL Inhalation Solution NEB ONE (22:20)
[2017-01-14 23:00] VITALS: BP 118/57; PULSE 99; RESP 24; O2SAT 95
[2017-01-14 23:13] VITALS: PULSE 96; RESP 21; O2SAT 98
[2017-01-14 23:20] LABS: BASOPHILS % (AUTO) 0.2 % (0-3); EOSINOPHILS % (AUTO) 2.9 % (0-5); MONOCYTES % (AUTO) 8.3 % (4-12); Mean Corpuscular Hemoglobin 29.8 pg (27.0-35.0); Mean Corpuscular Volume 86.4 fL (81-100); NEUTROPHILS % (AUTO) 58.4 % (40-74); Platelet Count 371 bil/L (150-400)
[2017-01-14 23:41] VITALS: BP 120/62; PULSE 98; RESP 21; O2SAT 98
[2017-01-14 23:54] LABS: TROPONIN T 0.01 ug/L (0.0-0.011)
[2017-01-15] VITALS (15 sets, daily range): BP systolic 110–129; BP diastolic 59–78; PULSE 63–102; RESP 18–22; O2SAT 88–99
[2017-01-15 00:13] LABS: Magnesium 1.9 mg/dL (1.6-2.6)
[2017-01-15] MEDS ORDERED: Polyethylene Glycol (PEG) 17 Gm Powder PO PRN (01:00)
[2017-01-15] MEDS ORDERED: Ondansetron 2 mg/mL 2 mL Inj IVPUSH PRN (01:00)
[2017-01-15] MEDS ORDERED: Alum-Mag Hydrox-Simeth 30 mL Suspension PO PRN (01:00)
--- NOTE | 2017-01-15 01:31 | PCM.HPMED ---
Subjective Date of Service Jan 15, 2017 Primary Provider: Admitting Physician: Tin Cintron MD Primary Care Physician: Kapil Phillips MD Attending Physician: Tin Cintron MD Admit Status: From the Emergency Department, Remote Telemetry Chief Complaint: Shortness of breath History of Present Illness: Ms. Harding is a pleasant 31-year-old obese female with a history of asthma and intermittent inhaled tobacco use, presented to the emergency department with a one-day history of increasing shortness of breath with associated productive cough, and chest tightness, without any associated fever or chills. Initial examination revealed diffuse inspiratory and expiratory wheeze. Patient was admitted for evaluation and treatment of acute asthma exacerbation. - Hospital day 1 Patient states that her symptoms of chest tightness, shortness of breath, and productive cough began day prior to admission date, and further elaborates that she has been experiencing increased number of exacerbations over the recent year. She denies any current or recent antibiotic use, oral steroid use, recent illness. She denies any recent ingestion of NSAIDs, and states her last cigarette was approximately 2 weeks ago. She was exposed to some cats in the household approximately 1 week ago. Denies any recent sick contacts. Denies any associated fever, chills, nausea, vomiting, abdominal pain, changes in vision. 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 Phillips. She denies any previous hospitalization for acute asthma exacerbation. She cannot think of any etiologies are triggers for this acute exacerbation, and denies any exposure to animals, allergens, smoke, use of NSAIDs. In the ED, patient was found to have significant inspiratory and expiratory wheeze and was provided multiple rounds of nebulizer treatment and methylprednisolone 125 mg IV 1. Lab counts revealed white count 12.4 with no shift, hemoglobin 15.3, platelets 371, sodium 142, potassium 3.4, creatinine 0.49, glucose 120, LFTs within range, pro-calcitonin 0.04. She was transported to medical floor in stable condition. Review of Systems: Complete review of systems obtained, pertinent positives and negatives as noted in history of present illness Allergies Coded Allergies: cyclobenzaprine (Verified Allergy, Mild, 01/14/17) methocarbamol (Verified Allergy, Mild, 01/14/17) hydromorphone HCl (Verified Allergy, Unknown, 01/14/17) ibuprofen (Verified Allergy, Unknown, 01/14/17) naproxen (Verified Allergy, Unknown, 01/14/17) tramadol (Verified Allergy, Unknown, 01/14/17) Home Medications Patient reports: Albuterol inhaler Pain medication if needed Denies any current oral steroid or oral antibiotic use; reports last prescription for these items were last emergency department visit, which was many months ago [facility] Patient reports Asthma, with onset during childhood Tobacco use Also: Morbid obesity, history of nephrolithiasis, chronic back pain Patient denies any personal history of diabetes, hypertension, GI diagnoses Surgical History Cholecystectomy Tonsillectomy Family History Patient reports significant family history of asthma, and also reports unspecified cardiac issues, but she does not believe any members in her family had myocardial infarctions Social History Hx Alcohol Use: No Hx Substance Use: No Smoking Status: Current Some Day Smoker (intermittent, last use reported 2 weeks prior to admission) Living Arrangement: with Family Exam Vital Signs Vital Sign - Last Date Time Temp Pulse Resp B/P Pulse Ox O2 Delivery O2 Flow Rate FiO2 01/15/17 00:57 92 19 120/71 88 Room Air 01/14/17 22:09 37.1 Exam General: Alert and oriented 3; pleasant obese woman resting supine in bed in no acute distress HEENT: Atraumatic, normocephalic, sclera anicteric, membranes moist Neck: Full range of motion without pain Cardiac: Tachycardic rate with regular rhythm at time of examination without any appreciable murmurs Respiratory: Diminished airflow all galvez bilaterally, with diffuse wheeze on inspiration and expiration; no use of accessory muscles Chest: Atraumatic without any reproducible pain with palpation Abdomen: Soft, nontender, nondistended Extremities: No edema appreciated Skin: Warm and dry MSK: 5/5 strength 4/4 extremities at major joints of the shoulder, hip Neuro: Cranial nerves II-XII grossly intact, speech without slur, facial expressions equal and symmetric Psych: Appropriate mood, affect, and responses to questions; good insight and judgment Lab and Diagnostics Result Diagram: 01/14/17225401/14/172254 Assessment & Plan Ms. Harding is a pleasant 31-year-old obese female with a history of asthma and intermittent inhaled tobacco use, presented to the emergency department with a one-day history of increasing shortness of breath with associated productive cough, and chest tightness, without any associated fever or chills. Initial examination revealed diffuse inspiratory and expiratory wheeze. Patient was admitted for evaluation and treatment of acute asthma exacerbation. - Hospital day 1 Acute exacerbation of asthma, present on admission, improving - On exam: Diffuse inspiratory and expiratory wheeze with decrease in oxygen saturation - Continue nebulizers: Duo nebs, Accunebs - Steroids: Solu-Medrol 125 mg IV q8h; consider transition to oral after adequate improvement - Provided asthma action plan at discharge Leukocytosis, likely acute, present on admission, monitor - On admit: WBC 12.4; likely stress reaction - No evidence of fever, but patient does report productive cough - Cough likely secondary to constricted airways secondary to exacerbation noted above - Procalcitonin negative on admission - No antibiotics indicated at this time - Consider PCR if symptoms persist; if it is an infection, likely viral Tachycardia, likely acute, present on admission, ongoing - On admit: Pulse 110 - Likely secondary to stress from shortness of breath, in addition to multiple rounds albuterol - Consideration of switch to levalbuterol tachycardia persists Hypokalemia, acute, present on admission, monitor - Admit: K3.4 - Likely secondary to albuterol use - We will continue to monitor Tobacco use disorder, chronic, presumed stable - Patient admits to intermittent tobacco use; declined as needed lozenges or patches at admission - Reports last cigarette use 2 weeks prior to admission - Likely contributing to asthma exacerbations and progression of lung disease - Encourage cessation Obesity, chronic, presumed stable - Encourage healthy style and weight loss PRN fever, bowel, nausea, pain DVT: Hep q8 Diet: general GI: Not indicated IVF: None Code: FULL CODE Patient status: Patient is admitted under observation status with expected length of stay less than 2 midnights due to severity of presenting symptoms, risk of adverse event, and complexity of treatment plan. Pain Evaluation: Adequate Pain Control GI Prophylaxis: Not indicated VTE Prophylaxis: Sub-Q Heparin (Unfractionated) Resuscitation Status: CPR: Attempt Resuscitation Attending Statement The patient was seen and examined together with Dr. Waller on 01/15 and I agree with the history, exam and plan as outlined in the note above. copies to: Kapil Phillips MD, Lindsay R DO Jan 15, 2017 01:31 Tin Cintron MD Jan 15, 2017 06:16
[2017-01-15] MEDS ORDERED: Albuterol 2.5 mg/3 mL Inhalation Solution NEB PRN (01:45)
--- NOTE | 2017-01-15 03:30 | NUR ---
Admit PT admitted from ED with asthma exacerbation. Pt is on 2l NC currently. Lungs are tight t/o with wheezes posteriorly upon expiration. PT is up ad roxana in room. C/O some back pain which is chronic. No interventions at this time. SO at the bedside.
--- NOTE | 2017-01-15 04:42 | NUR ---
Assumed care Assumed care of pt @ [phone]. Currently resting with eyes closed. FELDT score= 0.
[2017-01-15 05:39] LABS: BASOPHILS % (AUTO) 0.1 % (0-3); EOSINOPHILS % (AUTO) 0 % (0-5); MONOCYTES % (AUTO) 0.5 % (4-12); Mean Corpuscular Hemoglobin 29.8 pg (27.0-35.0); Mean Corpuscular Volume 86.9 fL (81-100); NEUTROPHILS % (AUTO) 91.5 % (40-74); Platelet Count 340 bil/L (150-400)
[2017-01-15] MEDS: Albuterol-Ipratropium 3 mL Inhalation Solution NEB SCH ×4 (08:33→20:31)
--- NOTE | 2017-01-15 08:40 | NUR ---
Social Work: Screening D: EMR reviewed. Pt is a 31 y/o female admitted IN0 - readmit score not assigned - for asthma exacerbation per H&P. Pt's insurance is [facility] and [facility]. PCP is Kapil Phillips MD. Pt's NOK is mother Mariaa Harding [phone]. Pt lives at home with family support in [facility]. SW screened pt's EMR - pt does not screen in for full assessment. SW will discuss pt in multidisciplinary rounds for potential discharge planning needs. No anticipated discharge needs at this time, no MD orders received. SW will continue to follow for needs. A: Pt who is independent at baseline. P: Pt anticipated to discharge home with mother via POV. SW will discuss pt in multidisciplinary rounds for potential discharge planning needs. No anticipated discharge needs at this time, no MD orders received. SW will continue to follow for needs. HOA Tobar
[2017-01-15] MEDS: Heparin 5,000 Unit/mL Inj SUBQ SCH ×2 (08:48→18:09)
[2017-01-15] MEDS: MethylprednisoLONE Sodium Succinate 62.5 mg/mL 2 mL Inj IVPUSH SCH ×2 (08:49→18:07)
--- NOTE | 2017-01-15 08:50 | DRSVH ---
PROCEDURE: X-RAY CHEST, TWO VIEWS ([id number]) INDICATIONS: cough, hortness of breath TECHNIQUE: 2 views of the chest were acquired. COMPARISON: [facility], CR, XR CHEST 1VW (PORTABLE), 07/07/2016, 1:08. [facility], CR, XR CHEST 2VW, 04/22/2016, 4:41. FINDINGS: Surgical changes and devices: None. Lungs and pleura: No pleural effusions or pneumothorax. Lungs are clear. Mediastinum: Mediastinal contours are normal. Heart size is normal. Bones and chest wall: No suspicious bony abnormalities. Soft tissues appear unremarkable. IMPRESSION: No acute cardiopulmonary disease. Dictated by: Marcus TADEO Interpreted: Sabina Zaman MD on 01/15/2017 at 8:30 Approved by: Sabina Zaman M.D. on 01/15/2017 at 8:48
--- NOTE | 2017-01-15 14:19 | PCM.PNMED ---
Subjective Date of Service Jan 15, 2017 Subjective Patient was seen and examined. Labs, tests results were reviewed and discussed with the patient. Home meds, current hospital meds were reviewed, possible side effects discussed with the patient. Plan of care was discussed with the patient. Patient agreed with plan of care. For more details see H&P dictated by admitting physician. Exam Vital Signs Vital Sign - Last Date Time Temp Pulse Resp B/P Pulse Ox O2 Delivery O2 Flow Rate FiO2 01/15/17 12:34 36.7 85 18 110/67 98 Room Air 01/15/17 02:00 2.00 Exam Patient was seen and examined today Lab and Diagnostics Result Diagram: 01/15/17 0520 01/15/17 0520 Emanuel Suarez MD Jan 15, 2017 14:19
--- NOTE | 2017-01-15 16:48 | NUR ---
Resp Ambulated in halls with increased SOB. Sats remained >94% on RA. HR 100-114 while walking. Denies SOB at rest. Inspiratory and expiratory wheezing and rhonchi bilat lower lobes and upper L lobe.
[2017-01-16 00:04] VITALS: BP 108/56; PULSE 89; RESP 16; O2SAT 93
[2017-01-16] MEDS: Heparin 5,000 Unit/mL Inj SUBQ SCH ×2 (01:09→08:04)
[2017-01-16] MEDS: MethylprednisoLONE Sodium Succinate 62.5 mg/mL 2 mL Inj IVPUSH SCH ×2 (01:09→08:04)
--- NOTE | 2017-01-16 03:16 | NUR ---
Activity/Pain Patient up independently in room to BR. States she gets SOB with activity, but no other complaints. Denies lightheadedness/dizziness. Received Tylenol 975mg PO for 6/10 back pain. Upon reassessment, rating pain a 4/10.
[2017-01-16 05:52] VITALS: PULSE 101
[2017-01-16 06:07] VITALS: BP 120/83; PULSE 76; RESP 18; O2SAT 96
[2017-01-16 07:37] VITALS: PULSE 87; RESP 20; O2SAT 99
[2017-01-16] MEDS: Albuterol-Ipratropium 3 mL Inhalation Solution NEB SCH ×2 (07:37→11:00)
[2017-01-16 07:57] VITALS: PULSE 90
[2017-01-16] MEDS ORDERED: ALBU8.5H2 INHALATION (09:18)
[2017-01-16] MEDS ORDERED: FLUT12AE8 IH (09:18)
--- NOTE | 2017-01-16 09:25 | PCM.DC.MED ---
Discharge Summary Date of Service Jan 16, 2017 Dates of Hospitalization Date of Hospital Admission Jan 15, 2017 at 01:02 Date of Discharge: Jan 16, 2017 Providers: Admitting Physician: Tin Cintron MD Primary Care Physician: Kapil Phillips MD Attending Physician: Emanuel Suarez MD Diagnosis at Time of Discharge Diagnosis at Time of Discharge Acute Exacerbation of asthma, mild leukocytosis, mild hypokalemia, tobacco use and obesity Procedures XRay, CTs & MRIs CXR - IMPRESSION: No acute cardiopulmonary disease. Hospital Course Ms. Harding is a pleasant 31-year-old obese female with a history of asthma and intermittent inhaled tobacco use, presented to the emergency department with a one-day history of increasing shortness of breath with associated productive cough, and chest tightness, without any associated fever or chills. Initial examination revealed diffuse inspiratory and expiratory wheeze. Patient was admitted for evaluation and treatment of acute asthma exacerbation. In the ED, patient was found to have significant inspiratory and expiratory wheeze and was provided multiple rounds of nebulizer treatment and methylprednisolone 125 mg IV 1. Lab counts revealed white count 12.4 with no shift, hemoglobin 15.3, platelets 371, sodium 142, potassium 3.4, creatinine 0.49, glucose 120, LFTs within range, pro-calcitonin 0.04. She received 1 dose of Solu-Medrol, respiratory treatment. Physical exam: gaurav was seen and examined on the day of discharge. After patient improved she was discharged home with recommendation to follow up with her PCP for further management of her medical problems. Patient Condition @ Discharge: good Discharge Disposition: home Discharge Activity: resume regular activity Discharge Diet: regular diet, heart healthy, low fat, low salt, high fiber Information Provided to Patient: information about discharge medications Discharge Medications: I discussed with patient medication dosage, usage, goals of therapy, side effects, alternatives. During discharge patient was allert, oriented, able to make own informed decisions. We discussed possible severe side effects, adverse reactions, benefits, risks, alternatives of current and newly prescribed medications and diagnostic procedures. Patient verbalized understanding and agreed to current plan of care and discharge. DISCHARGE ACTIVITYivity. 1. Discussed with patient re: discharge plan of care/treatment, and follow up care/services. 2. Patient agreed with discharge plan and further plan of care, all questions were answered/addressed, no further questions at the time of discharge. Exam Vital Signs (Last) Date Time Temp Pulse Resp B/P Pulse Ox O2 Delivery O2 Flow Rate FiO2 01/16/17 07:57 90 01/16/17 07:37 20 99 Room Air 01/16/17 06:07 36.9 120/83 01/15/17 02:00 2.00 Test 01/14/17 22:55 01/15/17 05:20 Magnesium Level 1.9mg/dL (1.6-2.6) Troponin T 0.010ug/L (0.0-0.011) Hold Padron Top Tube Received (Received) White Blood Count 9.3th/mm3 (3.8-10.1) Red Blood Count 4.96mil/mm3 (3.90-5.20) Hemoglobin 14.8g/dL (12.0-15.6) Hematocrit 43.1% (35.0-46.0) Mean Corpuscular Volume 86.9fL (81-100) Mean Corpuscular Hemoglobin 29.8pg (27.0-35.0) Mean Corpuscular Hemoglobin Concent 34.3% (32.0-37.0) Red Cell Distribution Width 13.5% (12.3-15.4) Platelet Count 340bil/L (150-400) Neutrophils (%) (Auto) 91.5% (40-74) Lymphocytes (%) (Auto) 7.7% (14-46) Monocytes (%) (Auto) 0.5% (4-12) Eosinophils (%) (Auto) 0% (0-5) Basophils (%) (Auto) 0.1% (0-3) Sodium Level 139mEq/L (134-144) Potassium Level 4.5mEq/L (3.5-5.2) Chloride Level 104mEq/L (97-108) Carbon Dioxide Level 22mmol/L (18-29) Blood Urea Nitrogen 11mg/dL (6-20) Creatinine 0.50mg/dL (0.57-1.00) Estimat Glomerular Filtration Rate 209mL/min (>59) Glucose Level 227mg/dL (60-99) Calcium Level 9.4mg/dL (8.5-10.1) Total Bilirubin 0.6mg/dL (0.0-1.2) Aspartate Amino Transf (AST/SGOT) 14U/L (0-50) Alanine Aminotransferase (ALT/SGPT) 12U/L (0-32) Alkaline Phosphatase 104U/L (25-150) Total Protein 6.8g/dL (6.4-8.4) Albumin 3.9g/dL (3.4-5.0) Procalcitonin 0.03ng/mL (0.00-0.08) Discharge Medications Discharge Medications Fluticasone Propionate (Flovent HFA 110 mcg) 12 Gm Aer.w.adap 1 PUFF IH BID Prescribed by: EDWARD DOWD MD Prednisone (PredniSONE) 10 Mg Tablet 10 MG PO DAILY Prescribed by: EDWARD DOWD MD As needed Albuterol HFA (Proair HFA) 8.5 Gm Hfa.aer.ad 2 PUFFS INHALATION Q4H PRN PRN For Shortness of Breath Prescribed by: MD Edward BROCK Andriy MD Jan 16, 2017 09:25
[2017-01-16] MEDS ORDERED: PRE10 PO (09:26)
[2017-01-16] MEDS ORDERED: predniSONE 20 mg Tablet PO SCH (09:30)
--- NOTE | 2017-01-16 12:40 | NUR ---
Discharge Pt discharged at 1226 with friend. Pt mildly wheezy with SOB upon excertion. Has discharge instructions, care notes and rx's. Extra education done on Prednisone. Pt A&O x 3, ROBBIE, SURJIT. Mild chronic back pain. IV removed intact. Has all belongings and all questions answered.
--- NOTE | 2017-01-16 15:52 | NUR ---
Social Work: Discharge/Multidisciplinary Rounds D: EMR reviewed. Pt is on day 1 of hospitalization. Pt discussed in multidisciplinary rounds and is medically stable for discharge home today via POV. Capacity for self-care addressed - no needs identified. No discharge needs identified, no MD orders received. A: Pt who is independent at baseline and has capacity for self-care. P: Pt discharged home with friend via POV. No discharge needs identified, no MD orders received. HOA Tobar
== END 2017-01-16 12:27 | disposition home or self-care (01) ==
LOC: SED 21:59 → OSC 01-15 01:02
PROVIDERS: ADMIT Hospitalist; ATTEND Internal Medicine
DX: J45.901 Unspecified asthma with (acute) exacerbation (principal); D72.829 Elevated white blood cell count, unspecified; E87.6 Hypokalemia; E66.01 Morbid (severe) obesity due to excess calories; G89.29 Other chronic pain; M54.9 Dorsalgia, unspecified; F17.210 Nicotine dependence, cigarettes, uncomplicated; Z87.442 Personal history of urinary calculi; Z79.52 Long term (current) use of systemic steroids; Z79.51 Long term (current) use of inhaled steroids
CPT/HCPCS: 36415; 71020; 80053; 83735; 84145; 84484; 85025; 94640; 94664; 96372; 96374; 96376; 99285; G0378; J1644; J2930; J7613; J7620

== ENCOUNTER 2017-02-08 19:48 | Emergency (ER) | payer OTHER ==
[~2017-02-08] VITALS: Ht 167.6 cm; Wt 110.0 kg
[~2017-02-08 19:48] MED LIST changes: -AMOX500T2 PO; -AZIT250T4 PO; -CIPR-198 PO; +FLUT12AE8 IH; -HYDR-4003 PO; +PRE10 PO; -PRE20 PO
[2017-02-08 20:12] VITALS: BP 136/79; PULSE 73; RESP 16; O2SAT 100
--- NOTE | 2017-02-08 21:50 | ED.REPORT ---
HPI- Female Date of Service Feb 08, 2017 ED Provider: Nestor Genao MD The pt is a 31 year old female with a hx asthma, presenting to the ED after being diagnosed with Trichomonas today at [facility]. She admits to abdominal pain and itching.She wanted to get a prescription, but was unable to. She wants to start tonight. Nursing Notes Stated Complaint: VAGINAL BACTERIA Chief Complaint: Female Abdominal Pain Nursing Notes Reviewed: Yes Allergies: Coded Allergies: cyclobenzaprine (Verified Allergy, Mild, 02/08/17) methocarbamol (Verified Allergy, Mild, 02/08/17) hydromorphone HCl (Verified Allergy, Unknown, 02/08/17) ibuprofen (Verified Allergy, Unknown, 02/08/17) naproxen (Verified Allergy, Unknown, 02/08/17) tramadol (Verified Allergy, Unknown, 02/08/17) Scheduled Fluticasone Propionate (Flovent HFA 110 mcg) 12 Gm Aer.w.adap 1 PUFF IH BID Prednisone (PredniSONE) 10 Mg Tablet 10 MG PO DAILY Scheduled PRN Albuterol HFA (Proair HFA) 8.5 Gm Hfa.aer.ad 2 PUFFS INHALATION Q4H PRN PRN For Shortness of Breath General Time Seen by MD: 21:48 Chief Complaint Other (itching) Hx Obtained From: Patient Arrived By: Walk-in Sudden in Onset?: Yes Context of Onset: During sexual activity Symptom Duration: Since onset Recent Healthcare: No recent hospitalization, Recent doctor visit Similar Sx Previous: No Past Medical History Past Medical History Morbid obesity Chronic back pain Asthma Hx kidney stones Past Surgical History Reports: Cholecystectomy, Tonsillectomy Family History Reviewed, not relevant Smoking History Current Some Day Smoker Social History Alcohol Use: Denies alcohol use Drug Use: Denies drug use Other Social History: Good social support, Local resident Occupation [employer] Ambulatory Status Independent Review of Systems Constitutional: Denies: Fever GI: Reports: Abdominal pain, Denies: Vomiting Skin: Reports Itching Complete sys rev & neg: except as marked. Physical Exam Initial Vital Signs Vital Signs (First) Date Time Temp Pulse Resp B/P Pulse Ox O2 Delivery O2 Flow Rate FiO2 02/08/17 20:12 36.9 73 16 136/79 100 Room Air Initial VS: Reviewed, Vital signs normal General/Constitutional: Well-developed, Well-nourished Head / Eyes: Atraumatic, Normocephalic Neck: Supple, Non-tender Respiratory: Breath sounds normal, No respiratory distress Cardiovascular: Regular rate & rhythm, Heart sounds normal Abdomen / GI: Soft, Non-tender Skin: Warm, Dry Neurologic: Alert, Oriented Psychiatric: Mood/affect normal, Behavior normal Female Genitourinary: Patient refused exam Interpretation & Diagnostics Lab Results Interpretation Test 02/08/17 22:38 Hold Urine Received (Received) Re-Eval/Medical Decision Med Decision/Clinical Course 31-year-old female diagnosed at [facility] with Trichomonas. A prescription was electronically transferred to the pharmacy but there was some which that made it unavailable. She presents here for treatment. She was given a prepack of metronidazole. Re-Evaluation/Progress : Time of Eval: 22:25 Re-Evaluation/Progress Note: Patient rechecked. Discussed plan to discharge. All questions addresssed at this time. Counseled Regarding: Diagnosis, Need for follow-up, When/why to return to ED Discharge & Departure Impression: Primary Impression: Trichomonas vaginitis Disposition: Home Discharge Condition All VS Reviewed: Yes Condition: No Change Patient Instructions: Trichomoniasis (ED) Additional Instructions: You are provided with a prescription for metronidazole (Flagyl) for the treatment of trichomonas. Do not consume any alcohol while on this medication or you will get sick. Referrals: Kapil Phillips MD (PCP) Scribe Attestation Portions of this note were transcribed by Bhaskar Glover. I, Dr. Genao personally performed the history, physical exam and medical decision-making; I reviewed and confirmed the accuracy of the information in the transcribed note. Signed by: Theo Jordan, 02/08/2017 copies to: Kapil Phillips MD, Howard L MD Feb 08, 2017 21:50 Feb 08, 2017 23:17
[2017-02-08 22:32] VITALS: BP 138/76; PULSE 70; RESP 16; O2SAT 99
[2017-02-09] MEDS ORDERED: _metroNIDAZOLE 500 mg Tablet PO SCH (08:30)
== END 2017-02-08 22:33 | disposition home or self-care (01) ==
LOC: SED 19:48
DX: A59.01 Trichomonal vulvovaginitis (principal); F17.200 Nicotine dependence, unspecified, uncomplicated; Z88.5 Allergy status to narcotic agent; Z88.8 Allergy status to other drugs, medicaments and biological substances